=== PATIENT | male | born 1980 | race Caucasian/White ===

== ENCOUNTER 2019-10-01 15:07 | Emergency (ER) | payer SELFPAY ==
--- NOTE | ~2019-10-01 | XR_ITS ---
EXAMINATION: XR sacrum coccyx min 2V EXAM DATE: 10/01/2019 16:24 INDICATION: Initial encounter following injury, with pain of the tailbone. TECHNIQUE: Frontal and lateral projections of the sacrococcygeal region. There is no prior study fo r comparison. FINDINGS: Sacrum, sacroiliac joints, sacral arcuate lines are intact. There are no acute fractures o r dislocations identified. There is no subcutaneous gas. The soft tissue is unremarkable. Right i nguinal hernia repair. IMPRESSION: No acute osseous findings. Reviewed, dictated and finalized at location A. IMPRESSION: No acute osseous findings.
--- NOTE | ~2019-10-01 | CT_ITS ---
EXAMINATION: CT brain wo con, CT cervical spine wo con EXAM DATE: 10/01/2019 15:28 INDICATION: Fall, head injury. TECHNIQUE: Spiral CT of the head was performed without contrast. Axial, coronal and sagittal images were reviewed. Spiral CT of the cervical spine was performed without contrast. Axial images were rev iewed. Coronal and sagittal reformatted images were also reviewed. The dose-length product (DLP) fo r this examination was 605.33 (accession [id number]), 590.42 (accession [id number]) mGy-cm. The exposure was tailored according to patient size, and iterative reconstruction (ASIR) was used as additional dose reduction technique. There is no prior study for comparison. FINDINGS: HEAD CT: There is no acute intraparenchymal hemorrhage. No evidence of intraparenchymal brain mass l esion. No evidence of acute infarction. There is no mass effect or midline shift. There is no obstru ctive hydrocephalus suspected. There are no extra-axial collections. There are no acute calvarial f ractures. The orbits are unremarkable. There is large left posterior scalp hematoma. The visualized sinuses and mastoid air cells are well aerated. CERVICAL CT: Mild cervical arthritis. There is no evidence of acute cervical fracture. The odontoid process is intact. Pre-dens space is normal. Prevertebral soft tissue is normal. There are no soft tissue abnormalities identified. There is no disc space widening or traumatic vertebral body sublux ation suspected. Vertebral body and disc heights are well-maintained. A detailed level by level ev aluation of spondylosis can be added as addendum if requested. IMPRESSION: 1. No acute intracranial findings or cervical fracture. 2. Large left posterior scalp hematoma. Reviewed, dictated and finalized at location A. IMPRESSION: 1. No acute intracranial findings or cervical fracture. 2. Large left posterior scalp hematoma.
[2019-10-01 15:03] VITALS: BP 129/79; PULSE 71; RESP 17; TEMP 36.9; O2SAT 98
--- NOTE | 2019-10-01 16:29 | ED.FALL ---
HPI - Fall General Chief Complaint: Fall Stated Complaint: fall 7-8 ft Time Seen by Provider: 10/01/19 15:44 History of Present Illness HPI Narrative: Patient is a 39-year-old male who presents ER after fall. Patient was climbing up his semi-when he slipped on the second step and fell backwards striking his head on a metal piece of the machinery. He felt stunned and could not move his body initially. Last about 5 seconds. Then he was able to move around and get up and walk around. He has no focal weakness at this time. Has headache where he has swelling over the posterior left aspect of his head. No nausea/vomiting/change in vision or hearing. Patient also reports pain over his buttock but has been able to walk. Related Data Home Medications Medication Instructions Recorded Confirmed aspirin 325 mg PO DAILY 10/01/19 atenolol 100 mg PO DAILY 10/01/19 flecainide 100 mg PO Q12H 10/01/19 Allergies Allergy/AdvReac Type Severity Reaction Status Date / Time Sulfa (Sulfonamide Allergy Palpitation Verified 10/01/19 15:09 Antibiotics) s Review of Systems Review of Systems: All systems reviewed & are unremarkable except as noted in HPI and below Constitutional: Constitutional: Denies chills, Denies fever(s) and Denies weakness Eyes: Eyes: Denies change in vision and Denies photophobia Gastrointestinal: Gastrointestinal: Denies nausea and Denies vomiting Neurologic: Reports syncope (Questionable LOC), Reports headache(s), Denies focal weakness and Denies numbness PMFSH Past Medical History Medical History (Updated 10/01/19 @ 16:36 by Rito Bess MD) Atrial fibrillation Hypertension Surgical History Surgical History (Updated 10/01/19 @ 16:30 by Rito Bess MD) No history of previous surgery Social History Social History (Updated 10/01/19 @ 16:30 by Rito Bess MD) Smoking status: Never smoker Gender identity (if verbalized by the patient): Male Exam Narrative: Exam Narrative: GENERAL: Well-appearing, well-nourished, and in no acute distress. HEAD: Normocephalic, soft tissue swelling left posterior aspect of the head is 2-1/2 inches x 4 inches. ENT: Mucous membranes moist. NECK: Supple. No midline tenderness CHEST: Clear to auscultation. No respiratory distress. HEART: Regular rate and rhythm. Normal peripheral pulses. BACK: TTP over sacrum near coccyx. EXTREMITIES: Normal range of motion. No edema. NEURO: No focal deficits. Alert and oriented x3. PSYCH: Normal mood and affect. Course Vital Signs Vital signs: Vital Signs Temperature 98.5 F 10/01/19 15:03 Pulse Rate 71 10/01/19 15:03 Respiratory Rate 17 10/01/19 15:03 Blood Pressure 129/79 10/01/19 15:03 Pulse Oximetry 98 10/01/19 15:03 Temperature 98.5 F 10/01/19 15:03 Pulse Rate 71 10/01/19 15:03 Respiratory Rate 17 10/01/19 15:03 Blood Pressure 129/79 10/01/19 15:03 Pulse Oximetry 98 10/01/19 15:03 MDM - Fall Imaging Data Radiologist's impression: ITS Impressions Cervical Spine CT 10/01/19 15:30 IMPRESSION: 1. No acute intracranial findings or cervical fracture. 2. Large left posterior scalp hematoma. Head CT 10/01/19 15:30 IMPRESSION: 1. No acute intracranial findings or cervical fracture. 2. Large left posterior scalp hematoma. Sacrum and Coccyx X-Ray 10/01/19 16:28 IMPRESSION: No acute osseous findings. Discharge Plan Discharge Clinical Impression: Concussion, Sacral contusion Patient Disposition: Home, Self-Care Condition: Stable Instructions: Concussion (ED) Additional Instructions: Return the ER if you have chest pain or shortness of breath you have focal weakness in arm or leg, you cannot keep down food or water, you have additional concerns. Do not take your muscle relaxer and operate heavy machinery. Prescriptions: New cyclobenzaprine 10 mg tablet 10 mg PO TID PRN (Reason:
== END 2019-10-01 17:11 | disposition home or self-care (01) ==
PROVIDERS: Emergency Provider Emergency Medicine
DX: S06.0X0A Concussion without loss of consciousness, initial encounter (principal); S30.0XXA Contusion of lower back and pelvis, initial encounter; Z79.82 Long term (current) use of aspirin; I48.91 Unspecified atrial fibrillation; I10 Essential (primary) hypertension; V68.4XXA Person boarding or alighting a heavy transport vehicle injured in noncollision transport accident, initial encounter
CPT/HCPCS: 70450; 72125; 72220; 99284